=== PATIENT | male | born 1990 | race Two or more races ===

== ENCOUNTER 2024-04-08 20:04 | Emergency (ER) | payer MEDICAID, OTHER | END 2024-04-08 21:58 | disposition left against medical advice (07) | LOC: EDBD 20:04 → ER 20:04 | DX: T14.8XXA Other injury of unspecified body region, initial encounter (principal); Z53.21 Procedure and treatment not carried out due to patient leaving prior to being seen by health care provider; X58.XXXA Exposure to other specified factors, initial encounter; Y93.89 Activity, other specified; Y92.89 Other specified places as the place of occurrence of the external cause; Y99.8 Other external cause status ==